=== PATIENT | male | born 1995 | race Caucasian/White ===

== ENCOUNTER 2023-04-21 09:59 | Emergency (ER) | payer OTHER ==
[~2023-04-21] VITALS: Ht 182.9 cm; Wt 89.4 kg
[2023-04-21 10:31] VITALS: BP 119/75; PULSE 66; RESP 20; TEMP 97.8; O2SAT 98
[2023-04-21] MEDS ORDERED: NAPR-54 PO (13:00)
== END 2023-04-21 13:50 | disposition home or self-care (01) ==
LOC: MED 09:59
DX: S93.401A Sprain of unspecified ligament of right ankle, initial encounter (principal); Z79.1 Long term (current) use of non-steroidal anti-inflammatories (NSAID); W18.42XA Slipping, tripping and stumbling without falling due to stepping into hole or opening, initial encounter; Y93.61 Activity, american tackle football; Y92.321 Football field as the place of occurrence of the external cause; Y99.8 Other external cause status
CPT/HCPCS: 73610; 99283